=== PATIENT | male | born 1970 | race Asian ===

== ENCOUNTER 2018-11-22 09:07 | Emergency (ER) | payer SELFPAY ==
[~2018-11-22] VITALS: Ht 167.6 cm; Wt 66.7 kg
[2018-11-22 09:15] VITALS: BP 132/85
--- NOTE | 2018-11-22 09:57 | NUR ---
AT BEDSIDE FOR EVAL.
[2018-11-22] MEDS ORDERED: IBUPROFEN 600 MG TABLET PO ONE ×2 (10:08→10:30)
--- NOTE | 2018-11-22 10:34 | NUR ---
PT IS BACK FROM THE XRAY.
--- NOTE | 2018-11-22 12:26 | NUR ---
Patient discharged to home in stable condition. Written and verbal after care instructions given. Patient verbalizes understanding of instruction.
== END 2018-11-22 12:27 | disposition home or self-care (01) ==
LOC: ER 09:09
DX: S13.4XXA Sprain of ligaments of cervical spine, initial encounter (principal); V49.69XA Unspecified car occupant injured in collision with other motor vehicles in traffic accident, initial encounter; Y93.89 Activity, other specified; Y92.413 State road as the place of occurrence of the external cause; Y99.8 Other external cause status
CPT/HCPCS: 72040-TC